=== PATIENT | female | born 1965 | race Caucasian/White ===

== ENCOUNTER 2018-01-14 15:25 | Emergency (ER) | payer OTHER ==
[~2018-01-14] VITALS: Ht 170.2 cm; Wt 60.0 kg
[2018-01-14] MEDS ORDERED: MUCINEX600 MG PO (15:34)
[2018-01-14 15:50] LABS: HEMATOCRIT 34.4 % (37.0-47.0); HEMOGLOBIN 11.6 g/dl (12.0-16.0); IMMATURE GRANULOCYTES 0.2 % (0.0-5.0); MEAN CELL VOLUME 95.8 fL CALC (80.0-100.0); MEAN CORPUSCULAR HGB 32.3 pG CALC (26.0-32.0); MEAN CORPUSCULAR HGB CONC 33.7 g/L CALC (32.0-36.0); NEUT# 3.98 thou/uL (2.00-7.15); RED BLOOD COUNT 3.59 mill/uL (4.20-5.60); RED CELL DISTRI WIDTH 13.2 % (11.5-15.5)
[2018-01-14 16:17] LABS: ALBUMIN 3.8 g/dL (3.2-5.0); ALKALINE PHOSPHATASE 99 u/l (38-126); ANION GAP 12 (6-22 (CALC)); BILIRUBIN, TOTAL 0.3 mg/dL (0.0-1.4); BUN 12 mg/dL (7-17); BUN/CREATININE RATIO 17 (12-20 (CALC)); CARBON DIOXIDE 24 mmol/l (22-30); CHLORIDE 111 mmol/l (95-108); CREATININE 0.7 mg/dL (0.5-1.0); GFR > 60 ML/MIN (>=60 (CALC)); GFR FOR AFR.AMER. > 60 ML/MIN (>=60 (CALC)); POTASSIUM 4.1 mmol/l (3.5-5.1); SGOT/AST 21 u/l (14-36); SGPT/ALT 18 u/l (9-52); SODIUM 142 mmol/l (137-146); TOTAL PROTEIN 6.6 g/dL (6.3-8.2)
[2018-01-14 16:47] VITALS: BP 112/77
== END 2018-01-14 16:59 | disposition home or self-care (01) | DRG 312 ==
LOC: ED 15:25
PROVIDERS: Emergency Medicine
DX: R55 Syncope and collapse (principal); F17.210 Nicotine dependence, cigarettes, uncomplicated

== ENCOUNTER 2018-02-17 10:37 | Emergency (ER) | payer OTHER ==
[~2018-02-17] VITALS: Ht 170.2 cm; Wt 52.0 kg
[~2018-02-17 10:37] MED LIST: MUCINEX600 MG PO
[2018-02-17 11:40] VITALS: BP 118/86
== END 2018-02-17 11:40 | disposition home or self-care (01) | DRG 605 ==
LOC: ED 10:37
DX: S80.01XA Contusion of right knee, initial encounter (principal); W01.0XXA Fall on same level from slipping, tripping and stumbling without subsequent striking against object, initial encounter; Y93.G9 Activity, other involving cooking and grilling; Y92.511 Restaurant or cafe as the place of occurrence of the external cause; Y99.0 Civilian activity done for income or pay

== ENCOUNTER 2018-12-21 20:00 | Observation (INO) | payer BC ==
[~2018-12-21] VITALS: Ht 170.2 cm; Wt 56.7 kg
--- NOTE | 2018-12-21 20:03 | NUR ---
PATIENT TO ROOM 7. TRIAGE COMPLETED AT BEDSIDE. PATIENT IS ACTIVELY HALLUCINATING. ORIENTED X3. PATIENT IS COOPERATIVE.
--- NOTE | 2018-12-21 20:35 | NUR ---
PATIENT UP TO BEDSIDE COMMODE WITH ASSIST. PATIENT C/O DIZZINESS WHEN STANDING.
--- NOTE | 2018-12-21 21:10 | NUR ---
MD AT BEDSIDE FOR EVAL. PATIENT IS NOT TALKING TO MD. PATIENT IS MAKING GOOD EYE CONTACT, BUT IS NOT ANSWERING QUESTIONS AT THIS TIME.
[2018-12-21 21:25] LABS: IMMATURE GRANULOCYTES 0.5 % (0.0-5.0); MEAN CELL VOLUME 93.1 fL CALC (80.0-100.0); MEAN CORPUSCULAR HGB 31.6 pG CALC (26.0-32.0); MEAN CORPUSCULAR HGB CONC 33.9 g/L CALC (32.0-36.0); NEUT# 8.26 thou/uL (2.00-7.15); RED BLOOD COUNT 6.24 mill/uL (4.20-5.60); RED CELL DISTRI WIDTH 13.1 % (11.5-15.5)
--- NOTE | 2018-12-21 21:35 | NUR ---
PATIENT TO END OF STRETCHER AND ATTEMPTING TO STAND, PSA AT BEDSIDE. PATIENT IS UNSTABLE ON HER FEET. ASKED IF SHE NEEDED TO USE BATHROOM. PATIENT DECLINED. ASSITED BACK INTO STRETCHER. PATIENT ENCOURAGED TO ASK FOR HELP BEFORE GETTING UP.
[2018-12-21 21:40] LABS: ALBUMIN 4.8 g/dL (3.2-5.0); ALKALINE PHOSPHATASE 127 u/l (38-126); ANION GAP 16 (6-22 (CALC)); BILIRUBIN, TOTAL 0.6 mg/dL (0.0-1.4); BUN 10 mg/dL (7-17); BUN/CREATININE RATIO 14 (12-20 (CALC)); CARBON DIOXIDE 21 mmol/l (22-30); CHLORIDE 110 mmol/l (95-108); CREATININE 0.7 mg/dL (0.5-1.0); GFR > 60 ML/MIN (>=60 (CALC)); GFR FOR AFR.AMER. > 60 ML/MIN (>=60 (CALC)); POTASSIUM 3.3 mmol/l (3.5-5.1); SGOT/AST 22 u/l (14-36); SODIUM 144 mmol/l (137-146); TOTAL PROTEIN 8.1 g/dL (6.3-8.2)
--- NOTE | 2018-12-21 21:45 | NUR ---
PATIENT FAMILY ARRIVES AT BEDSIDE. STATES PATIENT HAS NO PREVIOUS PSYCH HISTORY. STATES SHE HAS BEEN UNDER A LOT OF STRESS IN THE LAST THREE DAYS. PATIENT ADMITTED TO FAMILY SHE TOOK 2 SLEEPING PILLS AND SMOKED SOMETHING. FAMILY INFORMED OF MEDICAL EVAL AND MEDICAL CLEARANCE AND PLANS TO TRANSFER TO PSYCH FACILITY FOR EVAL ONCE MEDICALLY CLEARED. FAMILY VERBALIZES UNDERSTANDING.
--- NOTE | 2018-12-21 21:50 | NUR ---
PATIENT SPEAKING NOW BUT IS NOT COMPREHENSIBLE.
--- NOTE | 2018-12-21 22:32 | NUR ---
PATIENT UNABLE TO VOID. PATIENT STRAIGHT CATHED FOR URINE. SENT TO LAB.
[2018-12-21 23:15] LABS: URINE BILIRUBIN - DIPSTICK NEGATIVE (NEGATIVE); URINE BLOOD DIPSTICK LARGE (NEGATIVE); URINE COLOR YELLOW; URINE GLUCOSE - DIPSTICK NEGATIVE (NEGATIVE); URINE KETONE NEGATIVE (NEGATIVE); URINE LEUK ESTERASE NEGATIVE (NEGATIVE); URINE NITRITE - DIPSTICK NEGATIVE (Negative); URINE PROTEIN - DIPSTICK TRACE mg/dL (NEG-TRACE); URINE SPECIFIC GRAVITY >=1.030; URINE UROBILINOGEN - DIPSTICK 0.2 E.U./dL (0.2)
[2018-12-21 23:23] LABS: COCAINE NEGATIVE (NEGATIVE); METHADONE POSITIVE (NEGATIVE); TETRAHYDROCANNABIONOL POSITIVE (NEGATIVE); URINE RBC 25-50 RBC/hpf (0-5); URINE SQUAMOUS EPITHELIAL CELL FEW EPI/hpf (0-FEW)
[2018-12-21 23:24] LABS: BARBITURATES NEGATIVE (NEGATIVE); OXCYCODONE NEGATIVE (NEGATIVE); TRICYLIC ANTIDEPRESSANTS POSITIVE (NEGATIVE)
--- NOTE | 2018-12-21 23:37 | NUR ---
ALL DIAGNOSTICS COMPLETED. MD AT BEDSIDE FOR RE EVAL. PATIENT CONTINUES WITH VISUAL HALLUCINATIONS. PATIENT TO BE ADMITTED
[2018-12-22] VITALS (15 sets, daily range): BP systolic 99–133; BP diastolic 67–93
--- NOTE | 2018-12-22 01:00 | NUR ---
MAINTAINENCE IVF HUNG. PATIENT SPEECH IS INCOMPREHENSIBLE BUT IS ABLE TO ANSWER YES OR NO QUESTIONS FOR A SHORT PERIOD OF TIME. PATIENT TO REMAIN IN ER WITH PSA UNTIL A PSA CAN BE ARRANGED FOR ICU. LIGHTS DIMMED. PATIENT RESTING ON HER RIGHT SIDE IN POSITION OF COMFORT.
--- NOTE | 2018-12-22 01:17 | NUR ---
PATIENT ATTEMPTING TO GET UP OUT OF BED. REDIRECTED BACK TO LAYING ON STRETCHER. PATIENT LOSS CONTROL REPRESENTATIVE REMAINS AT BEDSIDE.
--- NOTE | 2018-12-22 01:40 | NUR ---
PATIENT RELAYED TO STAFF SHE NEEDS TO USE THE BATHROOM. PATIENT IS UNSTABLE ON HER FEET EVEN WITH ASSISTANCE. MD AWARE AND ORDER RECEIVED FRO HERNANDEZ CATHETER.
--- NOTE | 2018-12-22 02:16 | NUR ---
PATIENT SITTING UP ON STRETCHER. STATES CLEARLY "HELLO, HOW ARE YOU" WHEN NURSE ENTERS ROOM. PATIENT STATES SHE IS FEELING BETTER. HERNANDEZ DRAINING CLEAR YELLO URINE. PSA REMAINS AT BEDSIDE.
--- NOTE | 2018-12-22 03:28 | NUR ---
PATIENT IS MUMBLING AND HALLUCINATING BUT REMAINS IN BED AND COOPERATIVE. DOES MAKE ATTEMPTS TO GET UP BUT CAN BE REDIRECTED.
--- NOTE | 2018-12-22 04:30 | NUR ---
PATIENT LAYING ON STRETCHER REACHING OUT INTO THE AIR, TALKING TO HERSELF. PSA REMAINS AT BEDSIDE. PATIENT IS NOT ATTMEPTING TO REMOVE IV OR HERNANDEZ.
--- NOTE | 2018-12-22 05:44 | NUR ---
PATIENT AWAKE, HAS NOT SLEPT ALL NIGHT, FIDGETING ON STRETCHER. PATIENT HAS MOMENTS OF BEING LUCID AND THEN STARTS TO HALLUCINATE. PSA AT BEDSIDE. PATIENT ORDERED A BREAKFAST TRAY.
--- NOTE | 2018-12-22 06:04 | NUR ---
LAB AT BEDSIDE FOR MORNING BLOOD DRAW. EKG REPEATED BY RESPIRATORY THERAPY.
--- NOTE | 2018-12-22 06:12 | NUR ---
PATIENT REMOVED IV FROM LEFT FOREARM. NEW IV ESTABLISHED. PATEINT SPEECH CONTINUES TO IMPROVE. HALLUCINATIONS REMAIN.
--- NOTE | 2018-12-22 06:15 | NUR ---
1000 ML CLEAR YELLOW YRINE DRAINED FROM HERNANDEZ BAG.
[2018-12-22 06:21] LABS: IMMATURE GRANULOCYTES 0.5 % (0.0-5.0); MEAN CELL VOLUME 94.7 fL CALC (80.0-100.0); MEAN CORPUSCULAR HGB 31.6 pG CALC (26.0-32.0); MEAN CORPUSCULAR HGB CONC 33.3 g/L CALC (32.0-36.0); NEUT# 13.36 thou/uL (2.00-7.15); RED BLOOD COUNT 3.74 mill/uL (4.20-5.60)
[2018-12-22 06:41] LABS: ALBUMIN 4.2 g/dL (3.2-5.0); ALKALINE PHOSPHATASE 115 u/l (38-126); ANION GAP 13 (6-22 (CALC)); BILIRUBIN, TOTAL 0.5 mg/dL (0.0-1.4); BUN 8 mg/dL (7-17); BUN/CREATININE RATIO 15 (12-20 (CALC)); CARBON DIOXIDE 21 mmol/l (22-30); CHLORIDE 111 mmol/l (95-108); CREATININE 0.5 mg/dL (0.5-1.0); GFR > 60 ML/MIN (>=60 (CALC)); GFR FOR AFR.AMER. > 60 ML/MIN (>=60 (CALC)); POTASSIUM 3.7 mmol/l (3.5-5.1); SGOT/AST 24 u/l (14-36); SODIUM 142 mmol/l (137-146); TOTAL PROTEIN 7.1 g/dL (6.3-8.2)
[2018-12-22 06:56] LABS: HEMATOCRIT 35.4 % (37.0-47.0); HEMOGLOBIN 11.8 g/dl (12.0-16.0)
--- NOTE | 2018-12-22 07:00 | NUR ---
REPORT CALLED TO LOLITA PORTILLO RN. PATIENT TO BE TRANSPORT ED AFTER AHIFT CHANGE.
--- NOTE | 2018-12-22 07:00 | NUR ---
PT RESTING, OFFERS NO NEW COMPLAINTS OCASIONALLY GRABS AT THINGS IN THE AIR OR TALKS BUT DOESN'T MAKE SENSE IE...I BOUGHT HIM A CAT TOY. SITTER REMAINS AT BEDSIDE.
--- NOTE | 2018-12-22 08:05 | NUR ---
PT TRASNPORTED TO ICU BED 6 VIA STRETCHER WITH TELE MONITOR IN PLACE. NEL (ICU NURSES) AT BEDSIDE ON ARRIVAL
--- NOTE | 2018-12-22 08:05 | NUR ---
PT ARRIVED TO ICU 6 IN STABLE CONDITION. PT ABLE TO MOVE OVER FROM STRETCHER TO BED UNASSISTED. CAN FOLLOW DIRECTION BUT HAVING HALLUCINATIONS.
--- NOTE | 2018-12-22 08:15 | NUR ---
PT KNOWS FULL NAME, , YEAR, PRESIDENT, PLACE. DENIES PAIN. NO WOUNDS OR SKIN ABNORMALITIES. SKIN WARM/DRY/PINK. ABD FLAT, SOFT, NONTENDER. JONES. NO EDEMA. LUNGS CTA. BREATHING EVEN/UNLABORED. STRONG PULSES x4. SPEECH GARBLED, LIKE MARBLES IN MOUTH. EYES DILATED, UNREACTIVE @5. CATH HERNANDEZ IN PLACE. GOOD CAP REFILL. PT SEEING THINGS ON ROOF & TALKING ABOUT THE CAR PARKED BEHIND THE TOILET PAPER, WHICH IS ACTUALLY A WALL. SITTER @BEDSIDE.
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
--- NOTE | 2018-12-22 09:08 | NUR ---
DR HALL @BEDSIDE; ASSESSING PT. RT @BEDSIDE FOR EKG. LAB CALLED TO VERIFY TEST RESULTS.
--- NOTE | 2018-12-22 09:12 | NUR ---
TOMA MORALES CALLED FOR DR HALL TO ANSWER QUESTIONS & DISCUSS RESULTS/POC
--- NOTE | 2018-12-22 09:16 | NUR ---
RT @BEDSIDE FOR ABG. PT GIVEN FLUIDS.
--- NOTE | 2018-12-22 09:27 | NUR ---
TOMA MORALES CALLED BACK STATING SHE FOUND AN EMPTY BOTTLE OF OVER THE COUNTER SLEEP AID. ASKED TO BRING IN BOTTLE.
--- NOTE | 2018-12-22 09:43 | NUR ---
TOMA BROUGHT IN BOTTLE OF MAXIMUM STRENGTH SLEEP AID SHE FOUND BEHIND A CHAIR IN PTS HOUSE. BOTTLE HAD 32 SOFTGELS BUT BOTTLE WAS EMPTY. MAIN ACTIVE INGREDIENT IS DIPHENHYDRAMINE HCL 50MG.
--- NOTE | 2018-12-22 09:51 | NUR ---
TOMA, MOTHER IN LAW, AT BEDSIDE WITH PT.
[2018-12-22 10:05] LABS: HEMATOCRIT 58.1 % (37.0-47.0); HEMOGLOBIN 19.7 g/dl (12.0-16.0)
--- NOTE | 2018-12-22 11:15 | NUR ---
PT PULLING ON CATH HERNANDEZ LOOKING FOR SOMETHING TO DRINK. PT REDIRECTED, HANDED WATER CUP. PT APPRECIATIVE OF STAFFS HELP.
[2018-12-22 12:08] LABS: RED BLOOD COUNT 4.07 mill/uL (4.20-5.60)
[2018-12-22 12:11] LABS: HEMATOCRIT 38.7 % (37.0-47.0); HEMOGLOBIN 12.9 g/dl (12.0-16.0); MEAN CELL VOLUME 95.1 fL CALC (80.0-100.0); MEAN CORPUSCULAR HGB 31.7 pG CALC (26.0-32.0); MEAN CORPUSCULAR HGB CONC 33.3 g/L CALC (32.0-36.0)
[2018-12-22 12:12] LABS: IMMATURE GRANULOCYTES 0.1 % (0.0-5.0); NEUT# 8.25 thou/uL (2.00-7.15)
[2018-12-22 12:13] LABS: RED CELL DISTRI WIDTH 13.1 % (11.5-15.5)
--- NOTE | 2018-12-22 12:36 | NUR ---
PT ASSISTED UP TO BSC FOR BM. NO BM. PT VERY UNSTEADY ON FEET, JITTERY/SHAKY. MAX ASSIST x1.
--- NOTE | 2018-12-22 12:52 | NUR ---
DR HALL @BEDSIDE.
--- NOTE | 2018-12-22 13:37 | NUR ---
DR HALL NOTIFIED RE: PTS INCREASED CONFUSION & IRRITABILITY AFTER MEDICATED WITH ATIVAN. MD REQUEST CLOSE OBSERVATION OF PT ALL MEDICATION LEAVES HER SYSTEM. SITTER AWARE.
--- NOTE | 2018-12-22 14:02 | NUR ---
SOFT WRIST RESTRAINTS INITIATED WITH VERBAL ORDER FROM DR HALL FOR PULLING ON MONITORS, GRABBING STAFF, REPEATEDLY TRYING TO CLIMB OUT OF BED. PT IS NOW NOT REDIRECTABLE, PT DOES NOT FOLLOW DIRECTIONS. PT IS GOING BACK & FORTH IN TIME, CONFUSED ABOUT WHERE SHE IS, WITH INCREASED HALLUCINATIONS. SITTER REMAINS AT BEDSIDE. CM AWARE.
--- NOTE | 2018-12-22 14:41 | NUR ---
PT CONTINUES TO STRIKE AT & GRAB STAFF. PT PULLING AT MONITORS & IV. TOMA, MOTHER IN LAW, NOTIFIED OF RESTRAINTS. ALSO CHECKED ON TOMA BC SHE LEFT THE UNIT EMOTIONAL. SITTER REMAINS AT BEDSIDE.
--- NOTE | 2018-12-22 15:10 | NUR ---
SPOKE WITH SASCHA @ POISON CONTROL. HE RECOMMENDED AN ASA LEVEL, REPEAT EKG IN 1 HOUR, & DOSE OF PHYSOSTIGMINE TO REDUCE THE EFFECTS OF SLEEPING PILLS TO DX/DIFFERENTIATE BETWEEN MENTAL BREAKDOWN & MEDICATION CAUSING AMS. DR HALL NOTIFIED. RBVO FOR ASA LEVEL & REPEAT EKG, ASKED TO CHECK WITH DR LAMBERT (NOW CHIEF MINISTER) FOR PHYSOSTIGMINE. CALLED PHARMACY TO SEE IF WE HAVE MED.
--- NOTE | 2018-12-22 15:36 | NUR ---
PT READJUSTED IN BED, BILATERAL WRIST RESTRAINTS REMOVED & REPLACED PT IMMEDIATLY REACHED FOR THIS RNS HAIR AND HER CATH HERNANDEZ. BED ALARM ALSO SET. SITTER REMAINS IN ROOM.
--- NOTE | 2018-12-22 16:07 | NUR ---
RT @BEDSIDE FOR REPEAT EKG.
--- NOTE | 2018-12-22 16:49 | NUR ---
TOMA BROUGHT BAG OF CLOTHING FOR PT. BAG UNOPENED, KEPT AT NURSES STATION.
--- NOTE | 2018-12-22 17:30 | NUR ---
PT PULLED OUT IV IN RFA. NEW IV ESTABLISHED IN LAC, SECURED WITH COBAN. SHEETS & GOWN CHANGED.
--- NOTE | 2018-12-22 19:00 | NUR ---
awake. oriented to name & place only. asked pt why she was here. pt spoke of cutting leg & getting tetanus. remains confused. telemetry monitor shows sinus rhythm. #20 lac d5ns infusing @ 100cchr. po fluids taken well. moise cath in place. urine clear yellow. jules act, bilat wrist restraints, bed alarm, sitter & fall precautions cont.
--- NOTE | 2018-12-22 20:30 | NUR ---
chalo from poison control called this securities underwriter. updated on pts condition. suggested physostigmines if needed.
--- NOTE | 2018-12-22 22:00 | NUR ---
awake. confused. hallucinating @ times. load manager shows sinus rhythm hr 92.
[2018-12-23] VITALS (8 sets, daily range): BP systolic 91–104; BP diastolic 59–77
--- NOTE | 2018-12-23 00:01 | NUR ---
awake. no acute distress. remains confused. sitter @ bedside.
--- NOTE | 2018-12-23 01:55 | NUR ---
carmelo from poison control called this medical underwriter. updated on pts condition.
--- NOTE | 2018-12-23 02:00 | NUR ---
awake. no distress. pvc monitor shows sinus rhythm hr 72.
--- NOTE | 2018-12-23 04:40 | NUR ---
lab here. blood drawn.
[2018-12-23 05:16] LABS: HEMATOCRIT 35.2 % (37.0-47.0); HEMOGLOBIN 11.6 g/dl (12.0-16.0); MEAN CELL VOLUME 96.2 fL CALC (80.0-100.0); MEAN CORPUSCULAR HGB 31.7 pG CALC (26.0-32.0); RED BLOOD COUNT 3.66 mill/uL (4.20-5.60); RED CELL DISTRI WIDTH 13.2 % (11.5-15.5)
--- NOTE | 2018-12-23 05:40 | NUR ---
awake. mentally clearer this a.m. but still hallucinating. admits to taking 60 otc "sleep aid" from [facility]. she thinks it starts with A-C-E-H. admits being "depressed since going thru a divorce & just wanted to end it." said "i don't want the divorce." pt became tearful as she was speaking to this justowriter operator. admits has "30 yr old girlfriend." admits to knowing shes hallucinating. "i see that floating next to your head but i know i'm hallucinating." asked pt what she saw & she said "a six pack."
[2018-12-23 05:44] LABS: ALBUMIN 3.8 g/dL (3.2-5.0); ALKALINE PHOSPHATASE 107 u/l (38-126); BUN 8 mg/dL (7-17); BUN/CREATININE RATIO 10 (12-20 (CALC)); CHLORIDE 111 mmol/l (95-108); CREATININE 0.7 mg/dL (0.5-1.0); GFR > 60 ML/MIN (>=60 (CALC)); GFR FOR AFR.AMER. > 60 ML/MIN (>=60 (CALC)); POTASSIUM 3.8 mmol/l (3.5-5.1); SODIUM 143 mmol/l (137-146); TOTAL PROTEIN 6.6 g/dL (6.3-8.2)
[2018-12-23 05:46] LABS: ANION GAP 10 (6-22 (CALC)); CARBON DIOXIDE 26 mmol/l (22-30); SGOT/AST 63 u/l (14-36)
--- NOTE | 2018-12-23 06:53 | NUR ---
PT A&Ox3. PT THANKING STAFF FOR TAKING CARE OF HER. STATES SHE WAS STUPID THE OTHER NIGHT TAKING ALL THOSE PILLS, SHE JUST COULDNT HANDLE IT.
--- NOTE | 2018-12-23 07:51 | NUR ---
PT REPOSITIONED HERSELF UP IN BED, TO EAT BREAKFAST. RESTRAINTS LOOSENED SO PT CAN FEED HERSELF. PT COOPERATIVE AT THIS TIME. STILL HALLUCINATING, A&O BUT CONFUSED.
--- NOTE | 2018-12-23 09:20 | NUR ---
PT SITTING UP IN BED, TALKING TO HERSELF & PEOPLE NOT HERE, HALLUCINATING. SITTER @BEDSIDE. PT CALM, ABLE TO FOLLOW DIRECTIONS. BILATERAL SOFT WRIST RESTRAINTS REMOVED.
--- NOTE | 2018-12-23 10:27 | NUR ---
PT ASKING TO GET OOB, TO RECLINER. PT STILL SHAKY BUT MORE STABLE THAN YESTERDAY. MINIMAL ASSISTANCE FOR TRANSFER. SITTER @BEDSIDE.
--- NOTE | 2018-12-23 10:37 | NUR ---
TOMA, MOTHER IN LAW, @BEDSIDE WITH PT.
--- NOTE | 2018-12-23 10:45 | NUR ---
DR LAMBERT @BEDSIDE, ASSESSING PT. PT MEDICALLY CLEARED. NOTIFIED CM. TOMA SPOKE WITH MD BEFORE SHE LEFT.
--- NOTE | 2018-12-23 11:08 | NUR ---
JEMAL HERNANDEZ DC PER VERBAL ORDER FROM DR LAMBERT W/OUT COMPLICATION. EMPTIED 250cc CLEAR YELLOW URINE. PT FOLLOWING DIRECTIONS MORE BUT STILL HALLUCINATING. PT UP, WALKING HALLS WITH MINIMAL STAFF ASSIST. PT STATES SHE STILL FEELS "WOBBLY". SITTER REMAINS @BEDSIDE. WILL CONTINUE TO MONITOR.
--- NOTE | 2018-12-23 11:31 | NUR ---
PTS CHART FAXED TO [facility] FOR PLACEMENT.
--- NOTE | 2018-12-23 12:29 | NUR ---
PT CONVERSING APPROPRIATELY AT THIS TIME, OFTEN TEARFUL. STATES SHES SCARED SHE IS GOING TO LOOSE HER JOB & FEARFUL OF NOT KNOWING WHAT TO EXPECT FROM PSYCH FACILITY.
--- NOTE | 2018-12-23 12:50 | NUR ---
PHILIP FROM [facility] CALLED FOR PT SUMMARY
--- NOTE | 2018-12-23 13:00 | NUR ---
PER PHILIP BEJARANO @[facility], ACCEPTED PT FOR TRANSFER.
--- NOTE | 2018-12-23 13:32 | NUR ---
PT DRESSED SELF WITH ITEMS SITTER REMOVED FROM PTS BAG.
--- NOTE | 2018-12-23 13:34 | NUR ---
PT AMBULATED TO WITH STEADY GAIT. ESCORTED OFF UNIT BY SECURITY & DEPUTY.
--- NOTE | 2018-12-23 14:05 | NUR ---
SAMMI CHUA, NOTIFIED OF PTS TRANSFER.
== END 2018-12-23 13:34 | DRG 917 ==
LOC: ED 20:00 → ED-I 23:30 → ED 23:48 → ICU 23:49
PROVIDERS: Emergency Medicine; ADMIT Internal Medicine; ATTEND Internal Medicine
PROC: 0T9B70Z Drainage of Bladder with Drainage Device, Via Natural or Artificial Opening (ICD-10-PCS; principal; 2018-12-22)
DX: T45.0X1A Poisoning by antiallergic and antiemetic drugs, accidental (unintentional), initial encounter (principal); G92 Toxic encephalopathy; R00.0 Tachycardia, unspecified; F12.90 Cannabis use, unspecified, uncomplicated; F17.210 Nicotine dependence, cigarettes, uncomplicated; Z78.1 Physical restraint status; Z63.0 Problems in relationship with spouse or partner
CPT/HCPCS: J2060

== ENCOUNTER 2022-04-26 09:32 | Emergency (ER) | payer SELFPAY ==
[2022-04-26] VITALS (9 sets, daily range): BP systolic 86–134; BP diastolic 45–83
[~2022-04-26] VITALS: Ht 170.2 cm; Wt 50.0 kg
[2022-04-26] MEDS ORDERED: TAM75CAP PO (11:43)
== END 2022-04-26 11:57 | disposition home or self-care (01) | DRG 153 ==
LOC: ED 09:32
DX: J11.1 Influenza due to unidentified influenza virus with other respiratory manifestations (principal); Z20.822 Contact with and (suspected) exposure to COVID-19; F17.210 Nicotine dependence, cigarettes, uncomplicated